=== PATIENT | male | born 1930 | race Caucasian/White ===

== ENCOUNTER 2018-11-30 18:23 | Inpatient (IN) | payer MEDICARE ==
[2018-11-30 21:01] VITALS: BP 102/58
[2018-11-30] MEDS ORDERED: Magnesium Hydroxide (MOM) 30 mL UDC PO PRN (22:54)
[2018-11-30] MEDS ORDERED: guaiFENesin 200 MG/10 ML UDC PO PRN (22:54)
[2018-11-30] MEDS ORDERED: Albuterol Nebulizer 2.5mg/3mL HHN PRN (22:54)
[2018-11-30] MEDS ORDERED: Ipratropium Neb 0.5 mg/2.5 mL UD HHN PRN (22:54)
[2018-11-30] MEDS: INSULIN LISPRO SLIDING SCALE 100 UNITS/ML UNIT SUBQ SCH (23:00)
--- NOTE | 2018-12-01 00:33 | Progress Notes ---
DATE: 11/30/2018 SUBJECTIVE: Staff was spoken to. The patient is interviewed. Mood is noted to be less irritable. Affect is appropriate. The patient has been not presenting with any aggressive behavior. The patient's coping skills at this time are noted to be fair. No major concerns with regards to sleep and appetite have been reported by the staff members. The patient is currently on the low dose of lorazepam on a p.r.n. basis and the patient has been able to tolerate. PLAN: To continue the patient with the supportive therapy. I encouraged the patient to verbalize the concerns rather than to act out. JOB# [id number]
[2018-12-01] MEDS: INSULIN LISPRO SLIDING SCALE 100 UNITS/ML UNIT SUBQ SCH ×4 (06:40→21:37)
[2018-12-01 07:28] LABS: CHOLESTEROL 166 mg/dL (<200); HDL -HIGH DENSITY LIPOPROTEIN 30 mg/dL (23-92); TRIGLYCERIDES 176 mg/dL (<150)
[2018-12-01] MEDS ORDERED: GLUCAGON HCl 1 MG KIT IM PRN (12:14)
--- NOTE | 2018-12-01 12:16 | Internal Medicine Prog Note ---
Internal Medicine Subjective - Subjective Patient seen and examined:: with staff, chart reviewed Patient is:: awake, verbal, interactive Patient Complaints of:: congestion Per staff patient has:: no adverse event, no episodes of fall, eating well, tolerating meds Internal Medicine Objective - Results Recent Labs: Laboratory Last Values POC Glucose 121 MG/DL (70 - 105) H 12/01/18 06:02 Triglycerides 176 mg/dL (<150) H 12/01/18 06:30 Cholesterol 166 mg/dL (<200) 12/01/18 06:30 LDL Cholesterol Direct 112 mg/dL (75-193) 12/01/18 06:30 HDL Cholesterol 30 mg/dL (23-92) 12/01/18 06:30 - Physical Exam Vitals and I&O: Vital Signs Temp 97.8 F 11/30/18 20:41 Pulse 85 12/01/18 07:45 Resp 18 12/01/18 07:45 BP 102/58 11/30/18 21:01 Pulse Ox 95 12/01/18 07:45 Intake & Output 11/30/18 12/01/18 12/01/18 18:59 06:59 18:59 Intake Total 240 Balance 240 Intake: Oral 240 Other: # Voids 1 # Bowel Movements 0 Weight Source Bedscale Active Medications: Current Medications Acetaminophen (Tylenol) 650 mg PO Q4H PRN PRN Reason: Pain Or Fever above 101 Stop: 01/29/19 22:53 Albuterol Sulfate (Albuterol 2.5mg/3ml Neb Ud) 2.5 mg HHN Q2HRT PRN PRN Reason: Shortness of Breath or Wheeze Stop: 01/29/19 22:53 Bisacodyl (Dulcolax 10 Mg Supp) 10 mg RC DAILY PRN PRN Reason: IF MOM INEFFECTIVE Stop: 01/29/19 22:53 Cephalexin Monohydrate (Keflex) 500 mg PO TID JANE Stop: 01/30/19 08:59 Last Admin: 12/01/18 10:14 Dose: 500 mg Dextrose (Glutose 40%) 18.75 gm PO PRN PRN PRN Reason: Blood Glucose less than 70 Stop: 01/30/19 12:13 Diphenhydramine HCl (Benadryl) 25 mg PO Q6H PRN PRN Reason: Itching Stop: 01/29/19 22:53 Glipizide (Glucotrol) 5 mg PO QDAC [facility] Stop: 01/30/19 07:29 Last Admin: 12/01/18 06:58 Dose: 5 mg Glucagon (Glucagen) 1 mg IM PRN PRN PRN Reason: Blood Glucose less than 70 Stop: 01/30/19 12:13 Guaifenesin (Robitussin) 200 mg PO Q4HR PRN PRN Reason: Cough or Congestion Stop: 01/29/19 22:53 Heparin Sodium (Porcine) (Heparin) 5,000 units SUBQ Q12HR [facility] Stop: 01/30/19 08:59 Last Admin: 12/01/18 10:14 Dose: 5,000 units Insulin Human Lispro (Humalog Insulin Sliding Scale) 0 units SUBQ ACHS [facility]; Protocol Stop: 01/29/19 22:53 Last Admin: 12/01/18 11:40 Dose: 4 units Ipratropium [place] (Atrovent Neb 0.5mg/2.5ml) 0.5 mg HHN Q2HRT PRN PRN Reason: Shortness of Breath or Wheeze Stop: 01/29/19 22:53 Lorazepam (Ativan) 0.5 mg PO Q4HR PRN; Protocol PRN Reason: Anxiety Stop: 12/30/18 22:08 Magnesium Hydroxide (Milk Of Magnesia) 30 ml PO DAILY PRN PRN Reason: BOWEL MAINTENANCE Stop: 01/29/19 22:53 Mupirocin (Bactroban Oint) 1 appl TP TID [facility] Stop: 01/30/19 13:59 Nitroglycerin (Nitrostat) 0.4 mg SL Q5MIN PRN PRN Reason: Chest Pain Stop: 01/29/19 22:53 Zolpidem Tartrate (Ambien) 5 mg PO HSMR1 PRN PRN Reason: Insomnia Stop: 01/29/19 22:08 General: alert HEENT: NC/AT, PERRLA, EOMI Neck: Supple, No JVD Lungs: CTAB Cardiovascular: RRR, Normal S1, Normal S2 Abdomen: soft, non-tender Extremities: excoriation Neurological: no change Internal Medicine Assmt/Plan - Assessment Assessment: - Assessment Assessment: rash possible scabies, cellulitis upper torso, diabetes, hypertension, gait disability, and dementia. - Plan Plan: Continue the patient's oxygen __and bronchodilator __ treatment. Continue IV hydration, IV antibiotic. Continue with insulin sliding scale. We will give the patient insulin regimen. Continue with current care. We will continue to follow. We will refer the patient to Psychiatry as well. - Plan Plan: Plan: Continue the patient's oxygen __and bronchodilator __ treatment. Continue IV hydration, po antibiotic. Continue with insulin sliding scale. We will give the patient insulin regimen. Continue with current care. We will continue to follow. We will refer the patient to Psychiatry as well.
--- NOTE | 2018-12-02 03:22 | Psychiatric Evaluation ---
DATE OF SERVICE: 12/01/2018 IDENTIFYING DATA: The patient is an 88-year-old male seen by me in the medical unit after he was transferred over there from the [facility] for his agitation. The patient has been medically stabilized because of the cellulitis. The patient has been transferred to the Geropsychiatric Unit because of the agitation. Staff was spoken to. The patient is interviewed. CHIEF COMPLAINT: "I am okay." HISTORY OF PRESENT ILLNESS: This is the first psychiatric hospitalization to [facility] Ger[facility] for this patient who is reported to have been getting easily agitated. The patient is demented at this time and he is not able to provide much of information. PAST PSYCHIATRIC HISTORY: Details are not known. MEDICAL HISTORY AND PHYSICAL EXAMINATION: Requested to be done by Dr. Rodriguez. SUBSTANCE ABUSE HISTORY: None. SOCIAL HISTORY: The patient is a resident of the [facility] that is the [facility]. MENTAL STATUS EXAMINATION: The patient is an 88-year-old, looking his stated age, thin built, superficially cooperative. Eye contact is noted to be fair. Mood is noted to be depressed. Affect is constricted. The patient has short-term as well as long-term memory deficits. The patient is getting easily irritable. The patient's coping skills are noted to be extremely poor at this time. Attention span and concentration are noted to be very poor. The patient is not able to recall the three digits that are told him after 5 minutes. The patient's behavior is a danger to others because of the agitation. DIAGNOSTIC IMPRESSION: AXIS I: Dementia and behavioral change, secondary trait. 1B. Rule out psychosis. AXIS II: None. AXIS III: As per Dr. Rodriguez. PLAN: To continue the patient with the supportive therapy. Encourage the patient to verbalize the concerns rather than to act out. JOB# [id number]
[2018-12-02] MEDS: INSULIN LISPRO SLIDING SCALE 100 UNITS/ML UNIT SUBQ SCH ×4 (06:36→20:34)
--- NOTE | 2018-12-02 13:37 | Progress Notes ---
DATE: 12/02/2018 SUBJECTIVE: Staff was spoken to. The patient is interviewed. Mood is noted to be dysphoric. Coping skills are noted to be poor. Insight and judgment are noted to be limited. In view of the patient's age, we are very conservative in giving the patient's medication. The patient is on p.r.n. dose of the lorazepam. The patient has been isolative and withdrawn, but the patient gets easily frustrated when staff are trying to talk to him. No side effects to the medications are noted. ASSESSMENT: The patient is demented and irritable. PLAN: To continue the patient with the supportive therapy and followup. JOB# [id number]
--- NOTE | 2018-12-02 14:20 | Internal Medicine Prog Note ---
Internal Medicine Subjective - Subjective Service Date: 12/02/18 Patient is:: awake, verbal, interactive Patient Complaints of:: congestion Per staff patient has:: no adverse event, no episodes of fall, eating well, tolerating meds Internal Medicine Objective - Results Recent Labs: Laboratory Last Values POC Glucose 121 MG/DL (70 - 105) H 12/01/18 06:02 Triglycerides 176 mg/dL (<150) H 12/01/18 06:30 Cholesterol 166 mg/dL (<200) 12/01/18 06:30 LDL Cholesterol Direct 112 mg/dL (75-193) 12/01/18 06:30 HDL Cholesterol 30 mg/dL (23-92) 12/01/18 06:30 - Physical Exam Vitals and I&O: Vital Signs Temp 96.8 F 12/02/18 06:20 Pulse 78 12/02/18 06:20 Resp 18 12/02/18 06:20 BP 98/63 12/02/18 06:20 Pulse Ox 96 12/02/18 06:20 Intake & Output 12/01/18 12/02/18 12/02/18 18:59 06:59 18:59 Intake Total 240 Output Total 1 Balance 239 Intake: Oral 240 Output: Urine/Stool Mix 1 Other: # Voids 3 # Bowel Movements 2 0 Active Medications: Current Medications Acetaminophen (Tylenol) 650 mg PO Q4H PRN PRN Reason: Pain Or Fever above 101 Stop: 01/29/19 22:53 Albuterol Sulfate (Albuterol 2.5mg/3ml Neb Ud) 2.5 mg HHN Q2HRT PRN PRN Reason: Shortness of Breath or Wheeze Stop: 01/29/19 22:53 Bisacodyl (Dulcolax 10 Mg Supp) 10 mg RC DAILY PRN PRN Reason: IF MOM INEFFECTIVE Stop: 01/29/19 22:53 Cephalexin Monohydrate (Keflex) 500 mg PO TID JANE Stop: 01/30/19 08:59 Last Admin: 12/02/18 10:48 Dose: 500 mg Dextrose (Glutose 40%) 18.75 gm PO PRN PRN PRN Reason: Blood Glucose less than 70 Stop: 01/30/19 12:13 Diphenhydramine HCl (Benadryl) 25 mg PO Q6H PRN PRN Reason: Itching Stop: 01/29/19 22:53 Glipizide (Glucotrol) 5 mg PO QDAC [facility] Stop: 01/30/19 07:29 Last Admin: 12/02/18 06:45 Dose: 5 mg Glucagon (Glucagen) 1 mg IM PRN PRN PRN Reason: Blood Glucose less than 70 Stop: 01/30/19 12:13 Guaifenesin (Robitussin) 200 mg PO Q4HR PRN PRN Reason: Cough or Congestion Stop: 01/29/19 22:53 Heparin Sodium (Porcine) (Heparin) 5,000 units SUBQ Q12HR [facility] Stop: 01/30/19 08:59 Last Admin: 12/02/18 10:48 Dose: 5,000 units Insulin Human Lispro (Humalog Insulin Sliding Scale) 0 units SUBQ [facility]; Protocol Stop: 01/29/19 22:53 Last Admin: 12/02/18 12:12 Dose: Not Given Ipratropium [place] (Atrovent Neb 0.5mg/2.5ml) 0.5 mg HHN Q2HRT PRN PRN Reason: Shortness of Breath or Wheeze Stop: 01/29/19 22:53 Lorazepam (Ativan) 0.5 mg PO Q4HR PRN; Protocol PRN Reason: Anxiety Stop: 12/30/18 22:08 Magnesium Hydroxide (Milk Of Magnesia) 30 ml PO DAILY PRN PRN Reason: BOWEL MAINTENANCE Stop: 01/29/19 22:53 Mupirocin (Bactroban Oint) 1 appl TP TID [facility] Stop: 12/11/18 09:01 Last Admin: 12/02/18 10:48 Dose: 1 appl Nitroglycerin (Nitrostat) 0.4 mg SL Q5MIN PRN PRN Reason: Chest Pain Stop: 01/29/19 22:53 Zolpidem Tartrate (Ambien) 5 mg PO HSMR1 PRN PRN Reason: Insomnia Stop: 01/29/19 22:08 General: alert HEENT: NC/AT, PERRLA, EOMI Neck: Supple, No JVD Lungs: CTAB Cardiovascular: RRR, Normal S1, Normal S2 Abdomen: soft, non-tender Extremities: excoriation Neurological: no change Internal Medicine Assmt/Plan - Assessment Assessment: rash possible scabies, cellulitis upper torso, diabetes, hypertension, gait disability, and dementia. . - Plan Plan: Continue with insulin sliding scale. We will give the patient insulin regimen. Continue with current care. We will continue to follow. We will refer the patient to Psychiatry as well
--- NOTE | 2018-12-02 15:19 | Consultation ---
DATE OF CONSULTATION: 12/01/2018 REFERRING PHYSICIAN: Funmilayo Ojeda M.D. TYPE OF CONSULTATION: Psychology. HISTORY OF PRESENT ILLNESS: The patient is an 88-year-old male. The patient is a resident of [facility]. The following is by review of the medical record as well as by the patient's self-report. The patient is seen and evaluated. Chart is reviewed. Case has been discussed with the staff. The patient is being admitted due to increased agitation. The patient is reported to have been getting easily agitated at his placement. Upon interview, the patient states that he does not feel depressed and that he is trying to cope with the stress. The patient denied any suicidal ideation, plan or intention at the time of this clinical interview. PAST MEDICAL HISTORY: Please see history and physical by Dr. Rodriguez. PAST PSYCHIATRIC HISTORY: Records are unavailable. Details are unknown. SUBSTANCE ABUSE HISTORY: The patient denies any history of alcohol, tobacco, or illicit drug use. PSYCHOSOCIAL HISTORY: The patient did not answer questions about occupational or educational history or sikhism affiliation. The patient was selectively mute and responded to the majority of the questions in a yes or no response. The patient did not answer questions about any history of physical or sexual abuse or current legal problems. The patient did not answer questions about family members involved in his care. MENTAL STATUS EXAMINATION: The patient appears to be his stated age. The patient's attitude is guarded, but superficially cooperative. Eye contact is poor. Speech is selectively mute. The patient is responding to the clinical interview questions in a yes or no manner. Mood is irritable. Affect is constricted. Thought process shows to be concrete, but linear. The patient denied any suicidal ideation, plan or intention. The patient denies any auditory or visual hallucinations or delusions. The patient's behavior has been isolative, but compliant with his care. Impulse control is limited. No SI. Concentration is poor. The patient is having difficulty sustaining attention. The patient did not participate in the memory assessment. The patient did not participate in the interpretation of proverbs. Sensorium is alert and oriented to self only. The patient does not understand that he is in the hospital on the geropsychiatric unit. Insight is poor. Judgment is poor. DIAGNOSTIC IMPRESSION: AXIS I: Dementia with behavioral disturbance. AXIS II: Deferred. AXIS III: Per Dr. Rodriguez. PLAN: The patient has been seen by Dr. Ojeda for psychiatric evaluation and for the management of the patient's psychotropic medications. We will provide supportive psychotherapy to include reality orientation, differentiation and integration. We will provide coping strategies for phase of life issues. We will encourage the patient to verbalize his concerns. We will provide motivational enhancement for the patient to become compliant and to stay compliant with all aspects of his care and treatment. We will encourage the patient to demonstrate emotional and self-regulation prior to his discharge. Thank you, Dr. Ojeda, for this consult and the opportunity to participate in this patient's care. JOB# [id number] MALIA
[2018-12-03] MEDS: INSULIN LISPRO SLIDING SCALE 100 UNITS/ML UNIT SUBQ SCH ×4 (06:51→21:48)
--- NOTE | 2018-12-03 12:27 | Internal Medicine Prog Note ---
Internal Medicine Subjective - Subjective Patient seen and examined:: with staff, chart reviewed Patient is:: awake, verbal, interactive Patient Complaints of:: congestion Per staff patient has:: no adverse event, no episodes of fall, eating well, tolerating meds Internal Medicine Objective - Results Recent Labs: Laboratory Last Values POC Glucose 157 MG/DL (70 - 105) H 12/02/18 20:22 Triglycerides 176 mg/dL (<150) H 12/01/18 06:30 Cholesterol 166 mg/dL (<200) 12/01/18 06:30 LDL Cholesterol Direct 112 mg/dL (75-193) 12/01/18 06:30 HDL Cholesterol 30 mg/dL (23-92) 12/01/18 06:30 - Physical Exam Vitals and I&O: Vital Signs Temp 97.9 F 12/03/18 06:08 Pulse 102 12/03/18 06:08 Resp 19 12/03/18 06:08 BP 122/74 12/03/18 06:08 Pulse Ox 96 12/03/18 06:08 Intake & Output 12/02/18 12/03/18 12/03/18 18:59 06:59 18:59 Intake Total 120 Balance 120 Intake: Oral 120 Other: # Voids 4 3 # Bowel Movements 6 2 Stool Characteristics Liquid Brown Active Medications: Current Medications Acetaminophen (Tylenol) 650 mg PO Q4H PRN PRN Reason: Pain Or Fever above 101 Stop: 01/29/19 22:53 Albuterol Sulfate (Albuterol 2.5mg/3ml Neb Ud) 2.5 mg HHN Q2HRT PRN PRN Reason: Shortness of Breath or Wheeze Stop: 01/29/19 22:53 Bisacodyl (Dulcolax 10 Mg Supp) 10 mg RC DAILY PRN PRN Reason: IF MOM INEFFECTIVE Stop: 01/29/19 22:53 Dextrose (Glutose 40%) 18.75 gm PO PRN PRN PRN Reason: Blood Glucose less than 70 Stop: 01/30/19 12:13 Diphenhydramine HCl (Benadryl) 25 mg PO Q6H PRN PRN Reason: Itching Stop: 01/29/19 22:53 Last Admin: 12/03/18 08:42 Dose: 25 mg Glipizide (Glucotrol) 5 mg PO QDAC [facility] Stop: 01/30/19 07:29 Last Admin: 12/03/18 06:40 Dose: 5 mg Glucagon (Glucagen) 1 mg IM PRN PRN PRN Reason: Blood Glucose less than 70 Stop: 01/30/19 12:13 Guaifenesin (Robitussin) 200 mg PO Q4HR PRN PRN Reason: Cough or Congestion Stop: 01/29/19 22:53 Heparin Sodium (Porcine) (Heparin) 5,000 units SUBQ Q12HR [facility] Stop: 01/30/19 08:59 Last Admin: 12/03/18 08:42 Dose: 5,000 units Insulin Human Lispro (Humalog Insulin Sliding Scale) 0 units SUBQ ACHS [facility]; Protocol Stop: 01/29/19 22:53 Last Admin: 12/03/18 12:03 Dose: 4 units Ipratropium [place] (Atrovent Neb 0.5mg/2.5ml) 0.5 mg HHN Q2HRT PRN PRN Reason: Shortness of Breath or Wheeze Stop: 01/29/19 22:53 Lorazepam (Ativan) 0.5 mg PO Q4HR PRN; Protocol PRN Reason: Anxiety Stop: 12/30/18 22:08 Magnesium Hydroxide (Milk Of Magnesia) 30 ml PO DAILY PRN PRN Reason: BOWEL MAINTENANCE Stop: 01/29/19 22:53 Mupirocin (Bactroban Oint) 1 appl TP TID [facility] Stop: 12/11/18 09:01 Last Admin: 12/03/18 08:42 Dose: 1 appl Nitroglycerin (Nitrostat) 0.4 mg SL Q5MIN PRN PRN Reason: Chest Pain Stop: 01/29/19 22:53 Zolpidem Tartrate (Ambien) 5 mg PO HSMR1 PRN PRN Reason: Insomnia Stop: 01/29/19 22:08 General: alert HEENT: NC/AT, PERRLA, EOMI Neck: Supple, No JVD Lungs: CTAB Cardiovascular: RRR, Normal S1, Normal S2 Abdomen: soft, non-tender Extremities: excoriation Neurological: no change Internal Medicine Assmt/Plan - Assessment Assessment: - Assessment Assessment: rash possible scabies, cellulitis upper torso, diabetes, hypertension, gait disability, and dementia. - Plan Plan: Plan: Continue the patient's oxygen __and bronchodilator __ treatment. Continue IV hydration, po antibiotic. Continue with insulin sliding scale. We will give the patient insulin regimen. Continue with current care. We will continue to follow. We will refer the patient to Psychiatry as well.
--- NOTE | 2018-12-04 01:08 | Progress Notes ---
DATE: 12/03/2018 SUBJECTIVE: I met this patient, discussed with staff. Still anxious, irritable at times. The patient still occasionally becomes argumentative. His insight is limited. The patient, however, has not been aggressive recently. The patient's sleep and appetite are fair. ASSESSMENT: We will continue supportive therapy. Continue current level of care. Continue medication management. The patient's insight is still limited and is still having some agitation. [facility]# [id number]
[2018-12-04] MEDS: INSULIN LISPRO SLIDING SCALE 100 UNITS/ML UNIT SUBQ SCH ×4 (06:40→21:25)
--- NOTE | 2018-12-04 12:40 | Internal Medicine Prog Note ---
Internal Medicine Subjective - Subjective Patient seen and examined:: with staff, chart reviewed Patient is:: awake, verbal, interactive Patient Complaints of:: congestion Per staff patient has:: no adverse event, no episodes of fall, eating well, tolerating meds Internal Medicine Objective - Results Recent Labs: Laboratory Last Values POC Glucose 157 MG/DL (70 - 105) H 12/02/18 20:22 Triglycerides 176 mg/dL (<150) H 12/01/18 06:30 Cholesterol 166 mg/dL (<200) 12/01/18 06:30 LDL Cholesterol Direct 112 mg/dL (75-193) 12/01/18 06:30 HDL Cholesterol 30 mg/dL (23-92) 12/01/18 06:30 - Physical Exam Vitals and I&O: Vital Signs Temp 98.2 F 12/04/18 06:12 Pulse 88 12/04/18 06:12 Resp 18 12/04/18 08:00 BP 106/72 12/04/18 06:12 Pulse Ox 97 12/04/18 06:12 Intake & Output 12/03/18 12/04/18 12/04/18 18:59 06:59 18:59 Intake Total 120 Balance 120 Intake: Oral 120 Other: # Voids 4 3 # Bowel Movements 0 Stool Characteristics Liquid Brown Active Medications: Current Medications Acetaminophen (Tylenol) 650 mg PO Q4H PRN PRN Reason: Pain Or Fever above 101 Stop: 01/29/19 22:53 Albuterol Sulfate (Albuterol 2.5mg/3ml Neb Ud) 2.5 mg HHN Q2HRT PRN PRN Reason: Shortness of Breath or Wheeze Stop: 01/29/19 22:53 Bisacodyl (Dulcolax 10 Mg Supp) 10 mg RC DAILY PRN PRN Reason: IF MOM INEFFECTIVE Stop: 01/29/19 22:53 Dextrose (Glutose 40%) 18.75 gm PO PRN PRN PRN Reason: Blood Glucose less than 70 Stop: 01/30/19 12:13 Diphenhydramine HCl (Benadryl) 25 mg PO Q6H PRN PRN Reason: Itching Stop: 01/29/19 22:53 Last Admin: 12/03/18 08:42 Dose: 25 mg Glipizide (Glucotrol) 5 mg PO QDAC [facility] Stop: 01/30/19 07:29 Last Admin: 12/04/18 06:39 Dose: 5 mg Glucagon (Glucagen) 1 mg IM PRN PRN PRN Reason: Blood Glucose less than 70 Stop: 01/30/19 12:13 Guaifenesin (Robitussin) 200 mg PO Q4HR PRN PRN Reason: Cough or Congestion Stop: 01/29/19 22:53 Heparin Sodium (Porcine) (Heparin) 5,000 units SUBQ Q12HR [facility] Stop: 01/30/19 08:59 Last Admin: 12/04/18 08:55 Dose: 5,000 units Insulin Human Lispro (Humalog Insulin Sliding Scale) 0 units SUBQ ACHS [facility]; Protocol Stop: 01/29/19 22:53 Last Admin: 12/04/18 12:00 Dose: 6 units Ipratropium [place] (Atrovent Neb 0.5mg/2.5ml) 0.5 mg HHN Q2HRT PRN PRN Reason: Shortness of Breath or Wheeze Stop: 01/29/19 22:53 Lorazepam (Ativan) 0.5 mg PO Q4HR PRN; Protocol PRN Reason: Anxiety Stop: 12/30/18 22:08 Magnesium Hydroxide (Milk Of Magnesia) 30 ml PO DAILY PRN PRN Reason: BOWEL MAINTENANCE Stop: 01/29/19 22:53 Mupirocin (Bactroban Oint) 1 appl TP TID [facility] Stop: 12/11/18 09:01 Last Admin: 12/04/18 08:56 Dose: 1 appl Nitroglycerin (Nitrostat) 0.4 mg SL Q5MIN PRN PRN Reason: Chest Pain Stop: 01/29/19 22:53 Zolpidem Tartrate (Ambien) 5 mg PO HSMR1 PRN PRN Reason: Insomnia Stop: 01/29/19 22:08 Last Admin: 12/03/18 21:40 Dose: 5 mg General: alert HEENT: NC/AT, PERRLA, EOMI Neck: Supple, No JVD Lungs: CTAB Cardiovascular: RRR, Normal S1, Normal S2 Abdomen: soft, non-tender Extremities: excoriation Neurological: no change Internal Medicine Assmt/Plan - Assessment Assessment: - Assessment Assessment: rash possible scabies, cellulitis upper torso, diabetes, hypertension, gait disability, and dementia. - Plan Plan: Plan: Continue the patient's oxygen __and bronchodilator __ treatment. Continue IV hydration, po antibiotic. Continue with insulin sliding scale. We will give the patient insulin regimen. Continue with current care. We will continue to follow. We will refer the patient to Psychiatry as well.
--- NOTE | 2018-12-04 18:47 | Progress Notes ---
DATE: 12/04/2018 SUBJECTIVE: The patient was seen, chart reviewed, discussed with staff. Still irritable. The patient, however, is taking his medications. Sleep and appetite are fair. MENTAL STATUS EXAM: Speech is minimal. Affect is dysphoric. The patient is still irritable and paranoid. The patient is easily frustrated. ASSESSMENT: The patient still easily agitated, has poor insight into his problems. Continues to have also cognitive impairment due to his dementia. PLAN: Continue hospitalization for stabilization. Continue supportive therapy and medication treatment. [facility]# [id number]
[2018-12-05] MEDS: INSULIN LISPRO SLIDING SCALE 100 UNITS/ML UNIT SUBQ SCH ×4 (06:42→20:47)
--- NOTE | 2018-12-05 13:04 | Internal Medicine Prog Note ---
Internal Medicine Subjective - Subjective Service Date: 12/05/18 Patient is:: awake, verbal, interactive Patient Complaints of:: congestion Per staff patient has:: no adverse event, no episodes of fall, eating well, tolerating meds Internal Medicine Objective - Results Recent Labs: Laboratory Last Values POC Glucose 157 MG/DL (70 - 105) H 12/02/18 20:22 Triglycerides 176 mg/dL (<150) H 12/01/18 06:30 Cholesterol 166 mg/dL (<200) 12/01/18 06:30 LDL Cholesterol Direct 112 mg/dL (75-193) 12/01/18 06:30 HDL Cholesterol 30 mg/dL (23-92) 12/01/18 06:30 - Physical Exam Vitals and I&O: Vital Signs Temp 97.2 F 12/05/18 06:40 Pulse 108 12/05/18 07:00 Resp 12 12/05/18 07:00 BP 93/62 12/05/18 06:40 Pulse Ox 97 12/05/18 07:00 Intake & Output 12/04/18 12/05/18 12/05/18 18:59 06:59 18:59 Intake Total 1200 120 Balance 1200 120 Intake: Oral 1200 120 Other: # Voids 3 2 # Bowel Movements 0 1 Stool Characteristics Formed Active Medications: Current Medications Acetaminophen (Tylenol) 650 mg PO Q4H PRN PRN Reason: Pain Or Fever above 101 Stop: 01/29/19 22:53 Albuterol Sulfate (Albuterol 2.5mg/3ml Neb Ud) 2.5 mg HHN Q2HRT PRN PRN Reason: Shortness of Breath or Wheeze Stop: 01/29/19 22:53 Bisacodyl (Dulcolax 10 Mg Supp) 10 mg RC DAILY PRN PRN Reason: IF MOM INEFFECTIVE Stop: 01/29/19 22:53 Dextrose (Glutose 40%) 18.75 gm PO PRN PRN PRN Reason: Blood Glucose less than 70 Stop: 01/30/19 12:13 Diphenhydramine HCl (Benadryl) 25 mg PO Q6H PRN PRN Reason: Itching Stop: 01/29/19 22:53 Last Admin: 12/03/18 08:42 Dose: 25 mg Glipizide (Glucotrol) 5 mg PO QDAC JANE Stop: 01/30/19 07:29 Last Admin: 12/05/18 06:41 Dose: 5 mg Glucagon (Glucagen) 1 mg IM PRN PRN PRN Reason: Blood Glucose less than 70 Stop: 01/30/19 12:13 Guaifenesin (Robitussin) 200 mg PO Q4HR PRN PRN Reason: Cough or Congestion Stop: 01/29/19 22:53 Heparin Sodium (Porcine) (Heparin) 5,000 units SUBQ Q12HR [facility] Stop: 01/30/19 08:59 Last Admin: 12/05/18 08:52 Dose: 5,000 units Insulin Human Lispro (Humalog Insulin Sliding Scale) 0 units SUBQ [facility]; Protocol Stop: 01/29/19 22:53 Last Admin: 12/05/18 11:30 Dose: Not Given Ipratropium [place] (Atrovent Neb 0.5mg/2.5ml) 0.5 mg HHN Q2HRT PRN PRN Reason: Shortness of Breath or Wheeze Stop: 01/29/19 22:53 Lorazepam (Ativan) 0.5 mg PO Q4HR PRN; Protocol PRN Reason: Anxiety Stop: 12/30/18 22:08 Magnesium Hydroxide (Milk Of Magnesia) 30 ml PO DAILY PRN PRN Reason: BOWEL MAINTENANCE Stop: 01/29/19 22:53 Mupirocin (Bactroban Oint) 1 appl TP TID [facility] Stop: 12/11/18 09:01 Last Admin: 12/05/18 08:49 Dose: 1 appl Nitroglycerin (Nitrostat) 0.4 mg SL Q5MIN PRN PRN Reason: Chest Pain Stop: 01/29/19 22:53 Zolpidem Tartrate (Ambien) 5 mg PO HSMR1 PRN PRN Reason: Insomnia Stop: 01/29/19 22:08 Last Admin: 12/03/18 21:40 Dose: 5 mg General: alert HEENT: NC/AT, PERRLA, EOMI Neck: Supple, No JVD Lungs: CTAB Cardiovascular: RRR, Normal S1, Normal S2 Abdomen: soft, non-tender Extremities: excoriation Neurological: no change Internal Medicine Assmt/Plan - Assessment Assessment: rash possible scabies, cellulitis upper torso, diabetes, hypertension, gait disability, and dementia. . - Plan Plan: Continue with insulin sliding scale. We will give the patient insulin regimen. Continue with current care. We will continue to follow. We will refer the patient to Psychiatry as well Nutritional Asmnt/Malnutr-PDOC - Dietary Evaluation Malnutrition Findings (Please click <Entered> for more info): Nutritional Asmnt/Malnutrition Start: 12/04/18 14: 39 Text: Status: Complete Freq: Protocol: Document 12/04/18 14:39 LCHENG (Rec: 12/04/18 14:51 LCHENG [email or web address]) Nutritional Asmnt/Malnutrition Patient General Information Nutritional Screening Moderate Risk Diagnosis psychosis Pertinent Medical Hx/Surgical Hx DM, HTN, gait instability Subjective Information Pt seen eating in the bed at time of visit, no question or food preference. Per EMR, PO intake 75-100% Current Diet Order/ Nutrition Support mech soft chopped Pertinent Medications glucotrol, humalog Pertinent Labs 12/02 POC 157 12/01 POC 121 11/30 POC 223 Nutritional Hx/Data Height 5 ft 9 in Height (Calculated Centimeters) 175.3 Current Weight (lbs) 180 lb Weight (Calculated Kilograms) 81.6 Weight (Calculated Grams) 94672.6 [place] Body Weight 160 Body Mass Index (BMI) 26.6 Weight Status Overweight GI Symptoms GI Symptoms None Last BM 12/03 Difficult in: None Skin Integrity/Comment: intact Current %PO Good (75-100%) Estimated Nutritional Goals BEE in Kcals: Using Current wt Calories/Kcals/Kg 23-27 Kcals Calculated 9494-9583 Protein: Using Current wt Protein g/k.8-1 Protein Calculated 66-82 Fluid: ml 1886-2214ml (1ml/kcal) Nutritional Problem 1. Problem Problem altered nutrition related labs Etiology hyperglycemia Signs/Symptoms: POC 121-223 Malnutrition Alert Is there a minimum of two criteria No selected? Query Text:Check all the applicable criteria. A minimum of two criteria are recommended for diagnosis of either severe or non-severe malnutrition. Malnutrition Related to Morbid Obesity Malnutrition related to morbid obesity No Intervention/Recommendation Comments 1. Continue with mech soft chopped diet as ordered. Recommend to add CCHO 60gm diet for better glycemic control. 2. Monitor PO intake, wt, labs and skin integrity 3. F/U as moderate risk in 3-5 days Expected Outcomes/Goals Expected Outcomes/Goals 1. PO intake to meet at least 75% of nutritional needs. 2. Wt stability, skin to remain intact, labs to approach WNL.
--- NOTE | 2018-12-06 00:34 | Progress Notes ---
DATE: 12/05/2018 SUBJECTIVE: The patient was seen, still anxious, irritable, still with some agitation, continues to require redirecting by staff. The patient is forgetful, but he is taking his medications when prompted by staff. No major concerns in terms of sleep and appetite. PLAN: We will continue stabilization. Continue supportive measures. Continue current level of care. The patient appears to be little bit less irritable, less anxious. [facility]# [id number]
[2018-12-06] MEDS: INSULIN LISPRO SLIDING SCALE 100 UNITS/ML UNIT SUBQ SCH ×4 (06:41→20:47)
--- NOTE | 2018-12-06 13:48 | Progress Notes ---
DATE: 12/06/2018 SUBJECTIVE: Staff was spoken to. The patient is interviewed. Mood is noted to be irritable. Affect is constricted. The patient is isolative and withdrawn. Insight and judgment are noted to be still impaired. Impulse control seems to be improving. No side effects to the medications are noted. ASSESSMENT: The patient is still getting easily frustrated. PLAN: To continue the patient with the supportive therapy and encouraged the patient to verbalize the concerns rather than to act out. JOB# [id number]
--- NOTE | 2018-12-06 14:34 | Internal Medicine Prog Note ---
Internal Medicine Subjective - Subjective Service Date: 12/06/18 Patient is:: awake, verbal, interactive Patient Complaints of:: congestion Per staff patient has:: no adverse event, no episodes of fall, eating well, tolerating meds Internal Medicine Objective - Results Recent Labs: Laboratory Last Values POC Glucose 208 MG/DL (70 - 105) H 12/05/18 20:26 Triglycerides 176 mg/dL (<150) H 12/01/18 06:30 Cholesterol 166 mg/dL (<200) 12/01/18 06:30 LDL Cholesterol Direct 112 mg/dL (75-193) 12/01/18 06:30 HDL Cholesterol 30 mg/dL (23-92) 12/01/18 06:30 - Physical Exam Vitals and I&O: Vital Signs Temp 96.9 F 12/06/18 06:30 Pulse 110 12/06/18 07:00 Resp 14 12/06/18 07:00 BP 100/70 12/06/18 06:30 Pulse Ox 97 12/06/18 07:00 Intake & Output 12/05/18 12/06/18 12/06/18 18:59 06:59 18:59 Intake Total 120 240 Balance 120 240 Intake: Oral 120 240 Other: # Voids 2 2 # Bowel Movements 1 Stool Characteristics Formed Formed Active Medications: Current Medications Acetaminophen (Tylenol) 650 mg PO Q4H PRN PRN Reason: Pain Or Fever above 101 Stop: 01/29/19 22:53 Albuterol Sulfate (Albuterol 2.5mg/3ml Neb Ud) 2.5 mg HHN Q2HRT PRN PRN Reason: Shortness of Breath or Wheeze Stop: 01/29/19 22:53 Bisacodyl (Dulcolax 10 Mg Supp) 10 mg RC DAILY PRN PRN Reason: IF MOM INEFFECTIVE Stop: 01/29/19 22:53 Dextrose (Glutose 40%) 18.75 gm PO PRN PRN PRN Reason: Blood Glucose less than 70 Stop: 01/30/19 12:13 Diphenhydramine HCl (Benadryl) 25 mg PO Q6H PRN PRN Reason: Itching Stop: 01/29/19 22:53 Last Admin: 12/03/18 08:42 Dose: 25 mg Glipizide (Glucotrol) 5 mg PO QDAC JANE Stop: 01/30/19 07:29 Last Admin: 12/06/18 06:41 Dose: 5 mg Glucagon (Glucagen) 1 mg IM PRN PRN PRN Reason: Blood Glucose less than 70 Stop: 01/30/19 12:13 Guaifenesin (Robitussin) 200 mg PO Q4HR PRN PRN Reason: Cough or Congestion Stop: 01/29/19 22:53 Heparin Sodium (Porcine) (Heparin) 5,000 units SUBQ Q12HR [facility] Stop: 01/30/19 08:59 Last Admin: 12/06/18 09:37 Dose: 5,000 units Insulin Human Lispro (Humalog Insulin Sliding Scale) 0 units SUBQ [facility]; Protocol Stop: 01/29/19 22:53 Last Admin: 12/06/18 11:49 Dose: 2 units Ipratropium [place] (Atrovent Neb 0.5mg/2.5ml) 0.5 mg HHN Q2HRT PRN PRN Reason: Shortness of Breath or Wheeze Stop: 01/29/19 22:53 Lorazepam (Ativan) 0.5 mg PO Q4HR PRN; Protocol PRN Reason: Anxiety Stop: 12/30/18 22:08 Magnesium Hydroxide (Milk Of Magnesia) 30 ml PO DAILY PRN PRN Reason: BOWEL MAINTENANCE Stop: 01/29/19 22:53 Mupirocin (Bactroban Oint) 1 appl TP TID [facility] Stop: 12/11/18 09:01 Last Admin: 12/06/18 09:37 Dose: 1 appl Nitroglycerin (Nitrostat) 0.4 mg SL Q5MIN PRN PRN Reason: Chest Pain Stop: 01/29/19 22:53 Zolpidem Tartrate (Ambien) 5 mg PO HSMR1 PRN PRN Reason: Insomnia Stop: 01/29/19 22:08 Last Admin: 12/03/18 21:40 Dose: 5 mg General: alert HEENT: NC/AT, PERRLA, EOMI Neck: Supple, No JVD Lungs: CTAB Cardiovascular: RRR, Normal S1, Normal S2 Abdomen: soft, non-tender Extremities: excoriation Neurological: no change Internal Medicine Assmt/Plan - Assessment Assessment: rash possible scabies, cellulitis upper torso, diabetes, hypertension, gait disability, and dementia. . - Plan Plan: Continue with insulin sliding scale. We will give the patient insulin regimen. Continue with current care. We will continue to follow. We will refer the patient to Psychiatry as well Nutritional Asmnt/Malnutr-PDOC - Dietary Evaluation Malnutrition Findings (Please click <Entered> for more info): Nutritional Asmnt/Malnutrition Start: 12/04/18 14: 39 Text: Status: Complete Freq: Protocol: Document 12/04/18 14:39 LCHENG (Rec: 12/04/18 14:51 LCHENG [email or web address]) Nutritional Asmnt/Malnutrition Patient General Information Nutritional Screening Moderate Risk Diagnosis psychosis Pertinent Medical Hx/Surgical Hx DM, HTN, gait instability Subjective Information Pt seen eating in the bed at time of visit, no question or food preference. Per EMR, PO intake 75-100% Current Diet Order/ Nutrition Support mech soft chopped Pertinent Medications glucotrol, humalog Pertinent Labs 12/02 POC 157 12/01 POC 121 11/30 POC 223 Nutritional Hx/Data Height 5 ft 9 in Height (Calculated Centimeters) 175.3 Current Weight (lbs) 180 lb Weight (Calculated Kilograms) 81.6 Weight (Calculated Grams) 73445.6 [place] Body Weight 160 Body Mass Index (BMI) 26.6 Weight Status Overweight GI Symptoms GI Symptoms None Last BM 12/03 Difficult in: None Skin Integrity/Comment: intact Current %PO Good (75-100%) Estimated Nutritional Goals BEE in Kcals: Using Current wt Calories/Kcals/Kg 23-27 Kcals Calculated 9731-5948 Protein: Using Current wt Protein g/k.8-1 Protein Calculated 66-82 Fluid: ml 1886-2214ml (1ml/kcal) Nutritional Problem 1. Problem Problem altered nutrition related labs Etiology hyperglycemia Signs/Symptoms: POC 121-223 Malnutrition Alert Is there a minimum of two criteria No selected? Query Text:Check all the applicable criteria. A minimum of two criteria are recommended for diagnosis of either severe or non-severe malnutrition. Malnutrition Related to Morbid Obesity Malnutrition related to morbid obesity No Intervention/Recommendation Comments 1. Continue with mech soft chopped diet as ordered. Recommend to add CCHO 60gm diet for better glycemic control. 2. Monitor PO intake, wt, labs and skin integrity 3. F/U as moderate risk in 3-5 days Expected Outcomes/Goals Expected Outcomes/Goals 1. PO intake to meet at least 75% of nutritional needs. 2. Wt stability, skin to remain intact, labs to approach WNL.
[2018-12-07] MEDS: INSULIN LISPRO SLIDING SCALE 100 UNITS/ML UNIT SUBQ SCH ×2 (06:42→12:05)
--- NOTE | 2018-12-07 13:27 | Internal Medicine Prog Note ---
Internal Medicine Subjective - Subjective Patient seen and examined:: with staff, chart reviewed Patient is:: awake, verbal, interactive Patient Complaints of:: congestion Per staff patient has:: no adverse event, no episodes of fall, eating well, tolerating meds Internal Medicine Objective - Results Recent Labs: Laboratory Last Values POC Glucose 208 MG/DL (70 - 105) H 12/05/18 20:26 Triglycerides 176 mg/dL (<150) H 12/01/18 06:30 Cholesterol 166 mg/dL (<200) 12/01/18 06:30 LDL Cholesterol Direct 112 mg/dL (75-193) 12/01/18 06:30 HDL Cholesterol 30 mg/dL (23-92) 12/01/18 06:30 - Physical Exam Vitals and I&O: Vital Signs Temp 97.6 F 12/07/18 06:16 Pulse 108 12/07/18 08:00 Resp 16 12/07/18 08:00 BP 98/59 12/07/18 06:16 Pulse Ox 97 12/07/18 08:00 Intake & Output 12/06/18 12/07/18 12/07/18 18:59 06:59 18:59 Intake Total 800 480 Output Total 1 Balance 800 479 Intake: Oral 800 480 Output: Urine/Stool Mix 1 Other: # Voids 3 1 # Bowel Movements 0 1 Active Medications: Current Medications Acetaminophen (Tylenol) 650 mg PO Q4H PRN PRN Reason: Pain Or Fever above 101 Stop: 01/29/19 22:53 Albuterol Sulfate (Albuterol 2.5mg/3ml Neb Ud) 2.5 mg HHN Q2HRT PRN PRN Reason: Shortness of Breath or Wheeze Stop: 01/29/19 22:53 Bisacodyl (Dulcolax 10 Mg Supp) 10 mg RC DAILY PRN PRN Reason: IF MOM INEFFECTIVE Stop: 01/29/19 22:53 Dextrose (Glutose 40%) 18.75 gm PO PRN PRN PRN Reason: Blood Glucose less than 70 Stop: 01/30/19 12:13 Diphenhydramine HCl (Benadryl) 25 mg PO Q6H PRN PRN Reason: Itching Stop: 01/29/19 22:53 Last Admin: 12/03/18 08:42 Dose: 25 mg Glipizide (Glucotrol) 5 mg PO QDAC [facility] Stop: 01/30/19 07:29 Last Admin: 12/07/18 06:42 Dose: 5 mg Glucagon (Glucagen) 1 mg IM PRN PRN PRN Reason: Blood Glucose less than 70 Stop: 01/30/19 12:13 Guaifenesin (Robitussin) 200 mg PO Q4HR PRN PRN Reason: Cough or Congestion Stop: 01/29/19 22:53 Heparin Sodium (Porcine) (Heparin) 5,000 units SUBQ Q12HR [facility] Stop: 01/30/19 08:59 Last Admin: 12/07/18 08:50 Dose: 5,000 units Insulin Human Lispro (Humalog Insulin Sliding Scale) 0 units SUBQ [facility]CHS [facility]; Protocol Stop: 01/29/19 22:53 Last Admin: 12/07/18 12:05 Dose: 2 units Ipratropium [place] (Atrovent Neb 0.5mg/2.5ml) 0.5 mg HHN Q2HRT PRN PRN Reason: Shortness of Breath or Wheeze Stop: 01/29/19 22:53 Lorazepam (Ativan) 0.5 mg PO Q4HR PRN; Protocol PRN Reason: Anxiety Stop: 12/30/18 22:08 Magnesium Hydroxide (Milk Of Magnesia) 30 ml PO DAILY PRN PRN Reason: BOWEL MAINTENANCE Stop: 01/29/19 22:53 Mupirocin (Bactroban Oint) 1 appl TP TID [facility] Stop: 12/11/18 09:01 Last Admin: 12/07/18 08:50 Dose: 1 appl Nitroglycerin (Nitrostat) 0.4 mg SL Q5MIN PRN PRN Reason: Chest Pain Stop: 01/29/19 22:53 Zolpidem Tartrate (Ambien) 5 mg PO HSMR1 PRN PRN Reason: Insomnia Stop: 01/29/19 22:08 Last Admin: 12/03/18 21:40 Dose: 5 mg General: alert HEENT: NC/AT, PERRLA, EOMI Neck: Supple, No JVD Lungs: CTAB Cardiovascular: RRR, Normal S1, Normal S2 Abdomen: soft, non-tender Extremities: excoriation Neurological: no change Internal Medicine Assmt/Plan - Assessment Assessment: - Assessment Assessment: rash possible scabies, cellulitis upper torso, diabetes, hypertension, gait disability, and dementia. - Plan Plan: Plan: Continue the patient's oxygen __and bronchodilator __ treatment. Continue IV hydration, po antibiotic. Continue with insulin sliding scale. We will give the patient insulin regimen. Continue with current care. We will continue to follow. We will refer the patient to Psychiatry as well. Nutritional Asmnt/Malnutr-PDOC - Dietary Evaluation Malnutrition Findings (Please click <Entered> for more info): Nutritional Asmnt/Malnutrition Start: 12/04/18 14: 39 Text: Status: Complete Freq: Protocol: Document 12/04/18 14:39 LCHENG (Rec: 12/04/18 14:51 LCHENG [email or web address]) Nutritional Asmnt/Malnutrition Patient General Information Nutritional Screening Moderate Risk Diagnosis psychosis Pertinent Medical Hx/Surgical Hx DM, HTN, gait instability Subjective Information Pt seen eating in the bed at time of visit, no question or food preference. Per EMR, PO intake 75-100% Current Diet Order/ Nutrition Support [facility] soft chopped Pertinent Medications glucotrol, humalog Pertinent Labs 12/02 POC 157 12/01 POC 121 11/30 POC 223 Nutritional Hx/Data Height 1.75 m Height (Calculated Centimeters) 175.3 Current Weight (lbs) 81.647 kg Weight (Calculated Kilograms) 81.6 Weight (Calculated Grams) 36525.6 [place] Body Weight 160 Body Mass Index (BMI) 26.6 Weight Status Overweight GI Symptoms GI Symptoms None Last BM 12/03 Difficult in: None Skin Integrity/Comment: intact Current %PO Good (75-100%) Estimated Nutritional Goals BEE in Kcals: Using Current wt Calories/Kcals/Kg 23-27 Kcals Calculated 0526-3781 Protein: Using Current wt Protein g/k.8-1 Protein Calculated 66-82 Fluid: ml 1886-2214ml (1ml/kcal) Nutritional Problem 1. Problem Problem altered nutrition related labs Etiology hyperglycemia Signs/Symptoms: POC 121-223 Malnutrition Alert Is there a minimum of two criteria No selected? Query Text:Check all the applicable criteria. A minimum of two criteria are recommended for diagnosis of either severe or non-severe malnutrition. Malnutrition Related to Morbid Obesity Malnutrition related to morbid obesity No Intervention/Recommendation Comments 1. Continue with [facility] soft chopped diet as ordered. Recommend to add CCHO 60gm diet for better glycemic control. 2. Monitor PO intake, wt, labs and skin integrity 3. F/U as moderate risk in 3-5 days Expected Outcomes/Goals Expected Outcomes/Goals 1. PO intake to meet at least 75% of nutritional needs. 2. Wt stability, skin to remain intact, labs to approach WNL.
--- NOTE | 2018-12-07 21:53 | Progress Notes ---
DATE: 12/07/2018 PSYCHOLOGY PROGRESS NOTE SUBJECTIVE: The patient is seen and is interviewed. Case is discussed with staff. The chart is reviewed. The patient presents as less irritable. Affect is constricted. The staff indicates that the patient's impulse control is improving and he is taking his p.o. medications. The patient is still easily frustrated. However, he is responding to cognitive and behavioral redirection. OBJECTIVE: Mood is irritable. Affect is constricted. Thought process shows to be concrete. The patient denied any hallucinations or delusions. The patient's behavior is more goal oriented. The patient's impulse control is improving. ASSESSMENT AND PLAN: The patient was provided supportive psychotherapy to include positive reinforcement for the patient to stay compliant with all aspects of his care and treatment. We encouraged the patient to demonstrate emotional and self regulation, as well as to verbalize his concerns versus acting out. We provided coping strategies for phase of life issues as well. No followup is indicated as the staff indicates that the patient is most likely being discharged this afternoon. Prognosis is fair. Thank you, Dr. Ojeda, for this consult and the opportunity to participate in this patient's care. JOB# [id number] MALIA
--- NOTE | 2018-12-07 23:56 | Progress Notes ---
DATE: 12/07/2018 SUMMARY: Staff was spoken to. The patient is interviewed. Mood is noted to be less irritable. Affect is appropriate. The patient is not presenting with any threats to harm self or others and the patient could be redirectable. The patient is not presenting with any threats to harm self, and hence, it is decided to discharge the patient to self to be followed up on outpatient basis. The patient is only on lorazepam as needed basis. JOB# [id number]
== END 2018-12-07 14:00 | DRG 884 ==
LOC: GERO 18:23
PROVIDERS: ADMIT Psychiatry & Neurology Psychiatry; ATTEND Psychiatry & Neurology Psychiatry
DX: F03.91 Unspecified dementia, unspecified severity, with behavioral disturbance (principal); L03.114 Cellulitis of left upper limb; L03.113 Cellulitis of right upper limb; I10 Essential (primary) hypertension; E11.9 Type 2 diabetes mellitus without complications; R21 Rash and other nonspecific skin eruption
CPT/HCPCS: 36415-UA; 80061-TC; 82948-90; 83036-90; 94760; J1644; Z7610